=== PATIENT | male | born 1985 | race Caucasian/White ===

== ENCOUNTER → 2020-11-08 07:42 | Outpatient (CLI) | payer SELFPAY | PROVIDERS: Visit Provider Otolaryngology Otolaryngology/Facial Plastic Surgery | DX: Z03.818 Encounter for observation for suspected exposure to other biological agents ruled out (principal) | CPT/HCPCS: 87635; U0005; U0003 ==

== ENCOUNTER 2021-05-08 07:36 | Emergency (ER) | payer BC, SELFPAY ==
[2021-05-08 07:37] VITALS: BP 149/98; PULSE 85; RESP 14; TEMP 36.2; O2SAT 100; BMI 35.7
--- NOTE | 2021-05-08 08:21 | EDS_ITS ---
HPI HPI - Psych History of Present Illness Chief Complaint: Mental Health Narrative Narrative: Patient was angry because he found out that his girlfriend was cheating [id number] him, he had an episode where he felt quite upset about this and texted her that he is going to kill himself. He was evaluated by crisis over the phone, they did feel that he was medically clear to go home however the general production worker insisted that he come to the ED. At this time the patient has no suicidal ideation, he did tell me that he was exaggerating and just felt quite mad upset and betrayed. [facility] Medical History (Updated 05/08/21 @ 08:[address] Jose Eduardo Pinedo MD) Depression Home Medications NK 05/08/21 [History Last Taken Unknown] Allergy/AdvReac Type Severity Reaction Status Date / Time No Known Allergies Allergy Verified 05/08/21 07:42 Social History Smoking Status: Never smoker ROS ROS ED ROS Narrative Past medical history: Reviewed, no prior depression anxiety, he has seen a counselor in the past but is not on any antidepressants or depression medications. Medications: Reviewed Social history: Noncontributory Review of systems: Essentially he has no somatic symptoms All systems negative except as indicated General: No fever Eyes: No visual changes ENT: No upper airway congestion, normal voice Neck: No neck pain Cardiovascular: No chest pain Respiratory: No shortness of breath or cough Gastrointestinal: No abdominal pain, nausea vomiting or diarrhea Genitourinary: No dysuria Musculoskeletal: Denies myalgias no difficulty with ambulation Skin: No rash Neurological: No memory loss, confusion or any focal weakness Psych: As in HPI Hematologic: No easy bleeding or easy bruising EXAM Physical Exam Narrative Exam Narrative: Physical exam General: Well nourished, Well developed, No Acute Distress Head: Normocephalic, Atraumatic Eyes: Conjunctiva not pale ENT: Moist mucous membranes Neck: Supple, Nontender, No lymphadenopathy Cardiovascular: Regular rate, Regular rhythm Respiratory: No distress, CTA bilaterally Abdomen: Soft, Nontender, Nondistended Back: Nontender, Normal Inspection. Negative for: CVA tenderness Extremities: Nontender, No edema Skin: Normal color, No rash Neurological: Alert, Normal Strength, Normal Sensation Psychological: Normal affect, he is calm collected, he is lucid, he gives me a reasonable review of systems history and has no current suicidal or homicidal ideations. Const Vital Signs: 05/08/21 07:37 Temperature 97.1 F L Temperature Source Temporal Pulse Rate 85 Respiratory Rate 14 Blood Pressure 149/98 H Blood Pressure Mean 115 Pulse Ox 100 Oxygen Delivery Method Room Air MDM MDM MDM Narrative Medical decision making narrative: We did discuss with crisis again, he was safety plan and I do believe he can be discharged, they will set up counseling for him. 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
[2021-05-08 09:11] VITALS: BP 124/69; PULSE 72; RESP 16; O2SAT 97
== END 2021-05-08 09:20 | disposition home or self-care (01) ==
PROVIDERS: Emergency Provider Emergency Medicine; PCP Preventive Medicine Occupational Medicine; Visit Provider Emergency Medicine
DX: F59 Unspecified behavioral syndromes associated with physiological disturbances and physical factors (principal)
CPT/HCPCS: 99282

== ENCOUNTER → 2024-01-09 | Outpatient (CLI) | payer OTHER, SELFPAY | END | disposition home or self-care (01) | PROVIDERS: PCP Preventive Medicine Occupational Medicine; Referring Provider Nurse Practitioner; Visit Provider Nurse Practitioner | DX: N20.0 Calculus of kidney (principal) | CPT/HCPCS: 74018 ==